=== PATIENT | female | born 1970 | race Caucasian/White ===

== ENCOUNTER 2017-02-26 13:59 | Emergency (ER) | payer SELFPAY ==
--- NOTE | ~2017-02-26 | ER ---
PATIENT'S NAME: FLORINDA SORIA [facility] AGE: 46 Y [address] ROOM: [place] [address] LOCATION: ED ADMIT DATE: 02/26/2017 ER/Outpatient Report DISCHARGE DATE: 02/26/2017 FAMILY PHYSICIAN: Physician, Unknown ATTENDING PHYSICIAN: Tao Waterman Time of Arrival: 1359 hours. Time of Evaluation: 1426 hours. IDENTIFICATION: A 46-year-old female. CHIEF COMPLAINT: Abdominal pain. HISTORY OF PRESENT ILLNESS: The patient presents with left-sided abdominal pain that she has had off and on for 2 months. It has been worse since yesterday afternoon. She describes it as intermittent "knife-like" pain. She has had low-grade temp with a T-max of 99, nausea, but no vomiting. No diarrhea. No blood in her stools. Last bowel movement was this morning and was normal. She had a CT scan in January 09 and labs. She was given pain pills and told she had swollen lymph nodes. She saw Dr. Lancaster in [place] last week who said it was diverticulitis and recommended a high-fiber diet. She was hospitalized in [place] for 3-4 days. She was seen in [place] for abdominal pain. She says the last fall but they have records of an ER visit on the . No Gastroenterology consult yet. She sees a "new doctor" next week, Dr. Smallwood at [facility] in [place]. ALLERGIES: 1. CODEINE CAUSES SEIZURES. 2. BACTRIM CAUSES HER TO TURN YELLOW. 3. HYDROCODONE CAUSES HER TO ITCH. CURRENT MEDICATIONS: 1. Metformin 1000 mg daily. 2. Aripiprazole 5 mg at night. MEDICAL PROBLEMS: She states she has: 1. Diverticulitis. 2. Diabetes mellitus type 2. 3. Anxiety. PRIOR SURGERIES: PATIENT'S NAME: FLORINDA SORIA [facility] AGE: 46 Y [address] ROOM: [place] [address] LOCATION: ED ADMIT DATE: 02/26/2017 ER/Outpatient Report DISCHARGE DATE: 02/26/2017 FAMILY PHYSICIAN: Physician, Unknown ATTENDING PHYSICIAN: Tao Waterman 1. Tonsillectomy. 2. Right knee surgery. 3. Right breast biopsy. 4. Tubal . 5. Appendectomy. 6. She has had a hysterectomy for heavy bleeding in 2006. FAMILY HISTORY: Grandmother with colon cancer. Oldest son with irritable bowel. SOCIAL HISTORY: The patient lives in [place]. She is currently not working. She is . Has 5 children. One still at home whose age 13. REVIEW OF SYSTEMS: All systems reviewed and negative other than what is noted in the HPI. PHYSICAL EXAMINATION: VITAL SIGNS: Height 5 feet 4 inches and weight 78.5 kg, blood pressure 129/72, pulse 86, respirations 18, temperature 98.5, and saturations 93%. GENERAL: A 46-year-old female in obvious distress. HEENT: Head: Normocephalic, atraumatic. Ears: TMs translucent both ears. Nose: Mucosa pink, no lesions. Mouth: No lesions. Pharynx benign. NECK: Supple. No lymphadenopathy. LUNGS: Clear to auscultation. HEART: Regular rate and rhythm. No murmur, rub, or gallop. ABDOMEN: Bowel sounds present. Soft, nondistended, tender to palpation on the left lower abdomen. No rebound or guarding. SKIN: [place], warm, and dry. No lesions or rashes noted. NEURO: No focal deficit. EMERGENCY DEPARTMENT COURSE: An IV was started. The patient was given fentanyl 50 mcg for pain and Zofran 4 mg for nausea. Her symptoms improved significantly. Hemoglobin 12.6, hematocrit 36.7, platelets 206, white count 5.7 with a normal differential. UA is negative. Sodium 143, potassium 3.7, chloride 106, CO2 26, BUN 15, creatinine 0.7, blood sugar 117, amylase 45, lipase 221. I did get records to review. We requested records from [place], but did not get anything from [place]. I have records from [facility] dated, 01/09/2017. The patient was seen in the ER that day and was discharged. Her final diagnosis was tenderness in the left upper quadrant and left flank pain. She had a mono screen which was negative. Lipase which was normal. CBC which was unremarkable. Chemistry panel which was unremarkable. UA which was negative and a CT scan of her abdomen and pelvis without contrast, which revealed no hydronephrosis, diverticulosis, moderate diffuse fatty infiltration of the PATIENT'S NAME: [facility]IA [facility] AGE: 46 Y [address] ROOM: [place], [place] [address] LOCATION: [facility] ADMIT DATE: 02/26/2017 ER/Outpatient Report DISCHARGE DATE: 02/26/2017 FAMILY PHYSICIAN: Physician, Unknown ATTENDING PHYSICIAN: Tao Waterman A liver with hepatomegaly, soft tissue nodules in the mesentery of the right lateral abdomen and an inferior hepatic margin. Additional soft tissue nodules adjacent to the spleen measures 18 mm and could represent splenule or additional indeterminate nodule. Also, there is possibly some minimal strandy irregular changes of the anterior mesentery, very subtle, cannot exclude metastatic lesions and I recommended short interval, followup CT scan with contrast. She has had a previous appendectomy left greater than right, bilateral lower abdominal quadrant soft tissue nodule could represent ovarian tissue given the above-noted mesenteric soft tissue nodules. Further follow up of pelvic ultrasound to exclude ovarian nodule. Follow up abdominopelvic CT with contrast may also be benefit. She has not yet had a followup CAT scan. I did obtain records from [place], when she was hospitalized on 02/20/2017. 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 The patient states she did not get a followup CT. She was not treated with any antibiotics, but they told her she had diverticulitis. She said from the behavior standpoint, she has no suicidal ideation. Things are going better from that standpoint. I did get a CT scan here of abdomen and pelvis with IV contrast showing multiple soft tissue masses predominantly on the right side of the abdomen worrisome for neoplastic disease. Diverticulosis with no evidence of diverticulitis, fatty infiltration of the liver and a calcified granuloma at the right lung base. IMPRESSION: 1. Abdominal pain, soft tissue nodules in the mesentery and right side of the abdomen could be metastatic disease. 2. Diverticulosis. PLAN: 1. Clear liquids as tolerated. 2. Advance diet as tolerated. 3. Tylenol or Advil for [id number] pain. 4. Tramadol 50 mg 1 p.o. q.8 hours p.r.n. severe pain, dispensed 10. 5. Zofran 4 mg 1 p.o. q.6 hours p.r.n. nausea. 6. Follow up with her new family practice physician as scheduled next week. Follow up sooner for problems. 7. I told her that she needs to be set up either with the surgeon or Gibran Lund, Interventional Radiology for a biopsy of the soft tissue masses. The patient and her understand and agree, and all questions have been answered at this time. PATIENT'S NAME: FLORINDA SORIA [facility] AGE: 46 Y [address] ROOM: [place] [address] LOCATION: [facility] ADMIT DATE: 02/26/2017 ER/Outpatient Report DISCHARGE DATE: 02/26/2017 FAMILY PHYSICIAN: Physician, Unknown ATTENDING PHYSICIAN: Tao Waterman TAO WATERMAN MD CAR/modl /[id number] d: 02/27/17 0048 t: 03/04/17 0114, OUTPATIENT REPORT
[2017-02-26 14:52] LABS: BILIRUBIN URINE NEGATIVE (NEGATIVE); BLOOD URINE NEGATIVE /UL (NEGATIVE); COLOR URINE YELLOW (YELLOW); GLUCOSE URINE NEGATIVE (NEGATIVE); KETONE URINE NEGATIVE (NEGATIVE); LEUKOCYTES URINE NEGATIVE /UL (NEGATIVE); NITRITE URINE NEGATIVE (NEGATIVE); PROTEIN URINE NEGATIVE (NEGATIVE); TURBIDITY URINE CLEAR (CLEAR); UROBILINOGEN URINE 4 mg/dL (NORMAL)
[2017-02-26 14:55] LABS: BASOPHIL % 0.7 %; EOSINOPHIL # 0.1 K/uL (0.0-0.5); EOSINOPHIL % 2.3 %; HEMATOCRIT 36.7 % (33.0-46.0); HEMOGLOBIN 12.6 g/dL (10.0-15.0); IMMATURE GRANULOCYTE % 0.4 %; LYMPHOCYTE % 35.4 %; MCH 31.7 pg (27.0-34.0); MCHC 34.3 gm/dL (32.0-36.5); MCV 92.2 fl (83.0-98.0); MONOCYTE # 0.6 K/uL (0.0-1.0); MONOCYTE % 10.6 %; MPV 9.7 fl (9.4-12.4); NEUTROPHIL # (ANC) 2.9 K/uL (1.8-7.8); NEUTROPHIL % 50.6 %; NRBC % 0 /100WBC (0-0.00); PLATELET COUNT 206 K/uL (150-450); RBC 3.98 M/uL (3.50-5.50); RDW-CV 12.4 % (11.9-14.6); WBC 5.7 K/uL (4.0-11.0)
[2017-02-26 15:08] LABS: ALBUMIN 3.6 gm/dL (3.5-5.0); ALK PHOS 39 IU/L (33-138); ALT 34 IU/L (12-78); ANION GAP 14.7 (10.0-19.0); AST 16 IU/L (10-40); BLOOD UREA NITROGEN 15 mg/dL (6-24); CHLORIDE 106 mMol/L (96-110); CO2 26 mMol/L (22-32); CREATININE 0.7 mg/dL (0.5-1.1); ESTIMATED GFR (MDRD EQUATION) > 60; POTASSIUM 3.7 mMol/L (3.7-5.1); SODIUM 143 mMol/L (135-145); TOTAL BILIRUBIN 0.3 mg/dL (0.0-1.5); TOTAL PROTEIN 6.6 g/dL (6.0-8.4)
== END 2017-02-26 17:29 | disposition disaster alternative care site (69) ==
LOC: GMED 13:59
PROVIDERS: Family Medicine
DX: K57.30 Diverticulosis of large intestine without perforation or abscess without bleeding (principal); E11.9 Type 2 diabetes mellitus without complications; F41.9 Anxiety disorder, unspecified; Z90.49 Acquired absence of other specified parts of digestive tract; Z90.89 Acquired absence of other organs; Z90.710 Acquired absence of both cervix and uterus; Z79.84 Long term (current) use of oral hypoglycemic drugs
CPT/HCPCS: J2405; J3010; J7030; Q9967